=== PATIENT | male | born 1980 | race Caucasian/White ===

== ENCOUNTER 2023-10-12 07:49 | Outpatient (CLI) | payer OTHER, SELFPAY ==
--- OUTSIDE RECORDS SUMMARY | 2023-10-12 07:55 | XMS_ITS | Clinical Summary ---
Author Name Unknown Organization [facility] Address [place], [place] [address] Care Team Providers Care Assistant Professor Of Chemistry Name Role Phone Pcp, No Primary Care Provider Unavailabl e Allergies No known active allergies Medications Medication Sig Dispensed Refills Start Date End Date Status fluticasone (50 mcg per actuation) nasal solution (FLONASE)Indications: Dysfunction of right eustachian tube INHALE 2 SPRAYS INTO AFFECTED NOSTRIL(S) ONCE DAILY 48 mL 1 03/02/2023 Active Social History Tobacco Use Types Packs/Day Years Used Date Smoking Tobacco: Former Cigarettes Smokeless Tobacco: Never Tobacco Cessation:Counseling Given: Not Answered Alcohol Use Standard Drinks/Week Comments Not Currently 0 (1 standard drink = 0.6 oz pur e alcohol) Social Connections Answer Date Recorded Frequency of Communication with Friends and Fami ly Not on file 06/10/2022 Sex and Gender Information Value Date Recorded Sex Assigned at Not on file Gender Identity Not on file Sexual Orientation Not on file Obstetrics History Last Filed Vital Signs Vital Sign Reading Time Taken Comments Blood Pressure 136/84 06/10/2022 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 Pulse 88 06/10/2022 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 Temperature - - Respiratory Rate - - Oxygen Saturation - - Inhaled Oxygen Concentration - - Weight - - Height - - Body Mass Index - - Plan of Treatment Health Maintenance Due Date Last Done Comments Tdap 12/12/1991 Depression screening for age 12+ 1992 HIV for age 15-65 12/12/1995 BMI (ht and wt on same day) for age 18+ 1998 Hepatitis C screening for ag e 18-79 1998 Tetanus booster 2000 Lipids for age 35-44 12/12/2015 COVID-19 vaccine series (2022- season) 2023 Influenza for age 9-49 02/27/2024 Pneumococcal series for age 6-64 Aged Out No longer eligible based on patient's age to complete this topic Care Teams Assistant Professor Of Chemistry Relationship Specialty Start Date End Date Pcp, No . PCP - General 06/10/22
== END 2023-10-12 07:50 | disposition home or self-care (01) ==
PROVIDERS: PCP Family Medicine; Visit Provider Family Medicine
DX: E78.2 Mixed hyperlipidemia (principal); Z13.1 Encounter for screening for diabetes mellitus; Z86.39 Personal history of other endocrine, nutritional and metabolic disease
CPT/HCPCS: 80053; 80061; 82306

== ENCOUNTER 2024-01-19 08:29 | Outpatient (CLI) | payer OTHER, SELFPAY ==
--- OUTSIDE RECORDS SUMMARY | 2024-01-21 08:31 | XMS_ITS | Clinical Summary ---
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 Name Role Phone Pcp, No Primary Care Provider Unavailabl e Allergies No known active allergies Medications Medication Sig Dispensed Refills Start Date End Date Status fluticasone (50 mcg per actuation) nasal solution (FLONASE)Indications: Dysfunction of right eustachian tube INHALE 2 SPRAYS INTO AFFECTED NOSTRIL(S) ONCE DAILY 48 mL 1 03/02/2023 Active Encounters Date Type Department Care Team Description 01/04/[address] [id number] Manuela Beverly PA Refill Request (Fluticasone (50 Mcg Per Actuation) Nasal) from Last 3 Months Social History Tobacco Use Types Packs/Day Years [...] Comments Blood Pressure 136/84 06/10/2022 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 PCP - General 06/10/22
== END 2024-01-19 08:30 | disposition home or self-care (01) ==
LOC: NFLDREF 01-21 08:29
PROVIDERS: PCP Family Medicine; Referring Provider Family Medicine; Visit Provider Family Medicine
DX: E78.5 Hyperlipidemia, unspecified (principal)
CPT/HCPCS: 80061; 84450; 84460